=== PATIENT | male | born 1960 | race Caucasian/White ===

== ENCOUNTER 2022-11-24 10:15 | Outpatient (RCR) | payer BC, SELFPAY ==
--- NOTE | 2022-09-23 15:59 | PT.OIE ---
Current Diagnoses Pain in right knee (09/23/22) Visit Care Team Role Provider Type Doctor MD Bon Primary Care Provider Non-Staff Referring Provider Specialty: Medical Address: Phone: Fax: Email: Ele Jones MD Attending Provider Non-Staff Specialty: Urology Address: [address] [place] [address], [id number] Email: Physical Therapy Initial Evaluation PT-OP-A Visit Information Start: 09/23/22 15:19 Freq: Status: Active Protocol: Document 09/23/22 09:45 DCW (Rec: 09/23/22 15:42 DCW [id number]) Out-Patient Physical Therapy Visit Information Visit Information Visit Type Initial Evaluation Visit Start Time 09:45 Visit Stop Time 10:30 Total Visit Minutes 45 Visit Number 1 Number of BANQUET DIRECTOR Visits 0 Evaluation Information Evaluation Date 09/23/22 PT-OP-B Current Condition Start: 09/23/22 15:19 Freq: Status: Active Protocol: Document 09/23/22 09:45 DCW (Rec: 09/23/22 15:42 DCW [id number]) Current Condition History of Current Condition Onset Date Four month history Current Complaints Right knee pain following slip /twisting on ice History of Current Condition Pt is a 62 year old male presenting with a four month history of right knee pain. Pt report he slipped on ice in May, and fell into a temporary fence, resulting in a twisting motion of his right knee. Pt reports he initially didn't feel anything, and then within 24 hours, he had relatively minor pain and swelling. Admits that he didn' t think much of it, until he actually tried to do anything with it, and then any activity he performed felt like it was getting reinjured. Admits to good days and bad days, with no real understanding of what causes which. Notes it has been bothering him enough that he went to get seen by urgent care, and was told he had possible meniscus involvement, and may want a referral to an Ortho. Pt does not feel that even with an MRI showing a meniscus tear that he would opt for surgery, so he would like to try to improve with PT. Pain when he has his large dog pulls or twists with his knee, ascending/descending stairs, or moving his leg while driving. Has tried riding his stationary bike, which seems to help some. Treatment Goals Patient/Caregiver Goals Improve mobility and pain during activities PT-OP-C Subjective Start: 09/23/22 15:19 Freq: Status: Active Protocol: Document 09/23/22 09:45 DCW (Rec: 09/23/22 15:42 DCW [id number]) OP-PT Subjective Patient Comments Patient Comments It has popped once or twice getting up from the chair, but there wasn't really any pain with it. OP-PT Pain Assessment Location Medial Knee Intensity 6 Scale Used Numeric (0 - 10) Frequency Intermittent PT-OP-F Manual Assessment Start: 09/23/22 15:19 Freq: Status: Active Protocol: Document 09/23/22 09:45 DCW (Rec: 09/23/22 15:42 DCW [id number]) Manual Assessments Joint Mobility Assessment Joint Mobility Assessment Point-specific pain right on joint-line slightly anterior to MCL PT-OP-G Mobility & Gait Start: 09/23/22 15:19 Freq: Status: Active Protocol: Document 09/23/22 09:45 DCW (Rec: 09/23/22 15:42 DCW [id number]) OP Gait Assessment Comments Gait Comments During gait, pt performs a slight external rotation during R swing phase, which creates a slight gapping at his medial joint line. PT-OP-L Special Tests Start: 09/23/22 15:19 Freq: Status: Active Protocol: Document 09/23/22 09:45 DCW (Rec: 09/23/22 15:42 DCW [id number]) Special Tests Knee Special Tests Varus- 25 Degrees Test Results Negative Valgus- 25 Degrees Test Results Negative Posterior Draw Test Results Negative Patellar Grind Test Test Results Negative Patella Tap Test Results Negative Nargis Test Test Results Positive Right Apprehension Test Test Results Positive Right Apley's Compression Test Results Positive Right Anterior Draw Test Results Negative PT-OP-M Strength Start: 09/23/22 15:19 Freq: Status: Active Protocol: Document 09/23/22 09:45 DCW (Rec: 09/23/22 15:42 DCW [id number]) Knee Strength Knee Manual Muscle Testing Right Flexion (S2) 5 Normal Extension (L3) 4 Good Comments Pain with resisted right extension Left Flexion (S2) 5 Normal Extension (L3) 5 Normal PT-OP-Q Treatments Start: 09/23/22 15:19 Freq: Status: Active Protocol: Document 09/23/22 09:45 DCW (Rec: 09/23/22 15:58 DCW [id number]) Therapeutic Exercises Standing Exercises Mini-squats Standing Exercise Name Mini-squats Comments pain-free ROM Step lunge Standing Exercise Name Step lunge Side right Equipment Used 12 step Step-up Standing Exercise Name Step-ups Side right Equipment Used 6 step PT-OP-T Assessment and Plan Start: 09/23/22 15:19 Freq: Status: Active Protocol: Document 09/23/22 09:45 DCW (Rec: 09/23/22 15:57 DCW [id number]) Physical Therapy Assessment Rehab Potential Rehabilitation Potential Good Evaluation Complexity Number of Personal Factors/Comorbidities 0 Number of Body Systems Impaired 1-2 Clinical Presentation at Evaluation Stable Impairments Impairments Functional Activities, Functional Mobility,Pain,Soft Tissue Mobility,Strength,Tone Goals Two Impairment Pt has pain when ascending/ descending stairs Human Resources Generalist Goal (LTG) Pt to ascend/descend 12 steps, [id number], without pain, in order to improve ability to perform daily activities. LTG Duration 12/22/22 One Impairment Pt does not have an appropriate home exercise program Short Term Goal (STG) Pt to be independent and compliant with an appropriate HEP STG Duration 10/24/22 Assessment Summary Assessment Pt presents with signs and symptoms consistent with potential knee derangement, potentially with meniscal involvement. Pt's pain is very point-specific at his joint line slightly anterior to the MCL, and not very deep into the joint. Strongly positive appley compression and Nargis tests, which are indicative of meniscal involvement. Additionally, felt relief with distraction through knee joint. Pt also has a slightly dysfunctional gait pattern, turning out his right foot during swing phase, seemingly to create a gapping motion in his right knee. Pt should benefit from skilled therapy focusing on knee strengthening and stability, joint mobilization, and gait training. If pt does not progress as expected, may be beneficial to get referral for ortho. Physical Therapy Plan Frequency and Duration Frequency of Treatment 2x/Week Plan of Care Start Date 09/23/22 Plan of Care End Date 12/22/22 Therapeutic Interventions Therapeutic Interventions Home Exercise Program,Joint Mobilizations,Manual Therapy, Patient/Caregiver Education, Self-Care/Home Management,Soft Tissue Mobilization, Therapeutic Activities, Therapeutic Exercises Next Visit Focus/Plan Next Note Type Treatment Note Next Visit Plan Joint mobs, STM, strengthening , knee stabilization
--- NOTE | 2022-09-23 16:00 | PT.OPPOC ---
Physical, Occupational & Speech Therapy At [facility] Current Diagnoses Pain in right knee (09/23/22) Visit Care Team Role Provider Type Doctor MD Bon Primary Care Provider Non-Staff Referring Provider Specialty: Medical Address: Phone: Fax: Email: Ele Jones MD Attending Provider Non-Staff Specialty: Urology Address: [address] [place] [address], [facility] Email: Plan Of Care PT-OP-T Assessment and Plan Start: 09/23/22 15:19 Freq: Status: Active Protocol: Document 09/23/22 09:45 DCW (Rec: 09/23/22 15:57 DCW [id number]) Physical Therapy Assessment Rehab Potential Rehabilitation Potential Good Evaluation Complexity Number of Personal Factors/Comorbidities 0 Number of Body Systems Impaired 1-2 Clinical Presentation at Evaluation Stable Impairments Impairments Functional Activities, Functional Mobility,Pain,Soft Tissue Mobility,Strength,Tone Goals Two Impairment Pt has pain when ascending/ descending stairs Casing Material Weigher Goal (LTG) Pt to ascend/descend 12 steps, [id number], without pain, in order to improve ability to perform daily activities. LTG Duration 12/22/22 One Impairment Pt does not have an appropriate home exercise program Short Term Goal (STG) Pt to be independent and compliant with an appropriate HEP STG Duration 10/24/22 Assessment Summary Assessment Pt presents with signs and symptoms consistent with potential knee derangement, potentially with meniscal involvement. Pt's pain is very point-specific at his joint line slightly anterior to the MCL, and not very deep into the joint. Strongly positive appley compression and Nargis tests, which are indicative of meniscal involvement. Additionally, felt relief with distraction through knee joint. Pt also has a slightly dysfunctional gait pattern, turning out his right foot during swing phase, seemingly to create a gapping motion in his right knee. Pt should benefit from skilled therapy focusing on knee strengthening and stability, joint mobilization, and gait training. If pt does not progress as expected, may be beneficial to get referral for ortho. Physical Therapy Plan Frequency and Duration Frequency of Treatment 2x/Week Plan of Care Start Date 09/23/22 Plan of Care End Date 12/22/22 Therapeutic Interventions Therapeutic Interventions Home Exercise Program,Joint Mobilizations,Manual Therapy, Patient/Caregiver Education, Self-Care/Home Management,Soft Tissue Mobilization, Therapeutic Activities, Therapeutic Exercises Next Visit Focus/Plan Next Note Type Treatment Note Next Visit Plan Joint mobs, STM, strengthening , knee stabilization Plan of Care Dates Plan of Care Start Date 09/23/22 Plan of Care End Date 12/22/22 Electronically Signed by: Hollis Galloway, PT 09/23/22 1600 If you are in agreement with this Plan of Care, please return a signed and dated copy. I have reviewed this Plan of Care and certify that the skilled therapy services above are required to meet the patient?s needs. Physician Signature Date Printed Name and Credentials Clinical Instructor Signature Printed Name and Credentials
--- NOTE | 2022-10-06 08:25 | PT.OTN ---
Current Diagnoses Pain in right knee (10/06/22) Physical Therapy Treatment Note PT-OP-A Visit Information Start: 09/23/22 15:19 Freq: Status: Active Protocol: Document 10/06/22 07:31 SP (Rec: 10/06/22 08:25 SP [id number]) Out-Patient Physical Therapy Visit Information Visit Information Visit Type Treatment Note Visit Start Time 07:31 Visit Stop Time 08:25 Total Visit Minutes 54 Visit Number 2 Number of NAIL FEEDER Visits 1 Evaluation Information Evaluation Date 09/23/22 PT-OP-B Current Condition Start: 09/23/22 15:19 Freq: Status: Active Protocol: Document 09/23/22 09:45 DCW (Rec: 09/23/22 15:42 DCW [id number]) Current Condition History of Current Condition Onset Date Four month history Current Complaints Right knee pain following slip /twisting on ice History of Current Condition Pt is a 62 year old male presenting with a four month history of right knee pain. Pt report he slipped on ice in May, and fell into a temporary fence, resulting in a twisting motion of his right knee. Pt reports he initially didn't feel anything, and then within 24 hours, he had relatively minor pain and swelling. Admits that he didn' t think much of it, until he actually tried to do anything with it, and then any activity he performed felt like it was getting reinjured. Admits to good days and bad days, with no real understanding of what causes which. Notes it has been bothering him enough that he went to get seen by urgent care, and was told he had possible meniscus involvement, and may want a referral to an Ortho. Pt does not feel that even with an MRI showing a meniscus tear that he would opt for surgery, so he would like to try to improve with PT. Pain when he has his large dog pulls or twists with his knee, ascending/descending stairs, or moving his leg while driving. Has tried riding his stationary bike, which seems to help some. Treatment Goals Patient/Caregiver Goals Improve mobility and pain during activities PT-OP-C Subjective Start: 09/23/22 15:19 Freq: Status: Active Protocol: Document 10/06/22 07:31 SP (Rec: 10/06/22 08:25 SP [id number]) OP-PT Subjective Patient Comments Patient Comments Pt reports feeling more confident with exercises given , wants to be sure doing proper form. Trying to incorporated more active movement into day, sits a computer alot for work. PT-OP-F Manual Assessment Start: 09/23/22 15:19 Freq: Status: Active Protocol: Document 09/23/22 09:45 DCW (Rec: 09/23/22 15:42 DCW [id number]) Manual Assessments Joint Mobility Assessment Joint Mobility Assessment Point-specific pain right on joint-line slightly anterior to MCL PT-OP-G Mobility & Gait Start: 09/23/22 15:19 Freq: Status: Active Protocol: Document 09/23/22 09:45 DCW (Rec: 09/23/22 15:42 DCW [id number]) OP Gait Assessment Comments Gait Comments During gait, pt performs a slight external rotation during R swing phase, which creates a slight gapping at his medial joint line. PT-OP-L Special Tests Start: 09/23/22 15:19 Freq: Status: Active Protocol: Document 09/23/22 09:45 DCW (Rec: 09/23/22 15:42 DCW [id number]) Special Tests Knee Special Tests Varus- 25 Degrees Test Results Negative Valgus- 25 Degrees Test Results Negative Posterior Draw Test Results Negative Patellar Grind Test Test Results Negative Patella Tap Test Results Negative Nargis Test Test Results Positive Right Apprehension Test Test Results Positive Right Apley's Compression Test Results Positive Right Anterior Draw Test Results Negative PT-OP-M Strength Start: 09/23/22 15:19 Freq: Status: Active Protocol: Document 09/23/22 09:45 DCW (Rec: 09/23/22 15:42 DCW [id number]) Knee Strength Knee Manual Muscle Testing Right Flexion (S2) 5 Normal Extension (L3) 4 Good Comments Pain with resisted right extension Left Flexion (S2) 5 Normal Extension (L3) 5 Normal PT-OP-Q Treatments Start: 09/23/22 15:19 Freq: Status: Active Protocol: Document 10/06/22 07:31 SP (Rec: 10/06/22 08:25 SP [id number]) Therapeutic Exercises Sitting Exercises piriformis stretch Sitting Exercise Name added to HEP (seated and standing) Side right Reps/Minutes 30 x2 Comments good feedback response Standing Exercises band walk Standing Exercise Name added to help Resistance TB #1 Reps/Minutes 15 ft x3 laps Comments cued alignment stretching Standing Exercise Name quad, HS (hip hinge), hip flexor (lunge), calf Side bilateral Reps/Minutes 30 each Comments cued for posturing and form Mini-squats Standing Exercise Name Mini-squats Resistance pain-free ROM Equipment Used chair target behind helpful tool Reps/Minutes x10 Comments cued knees with/behind knees, mirror for self corrections form Step lunge Standing Exercise Name Step lunge Side right Equipment Used 12 step, stated doing at home Reps/Minutes 2x10 Comments cued knees with and behind toes, chair target behind helpful tool Step-up Standing Exercise Name Step-ups Side right Equipment Used 6 step Reps/Minutes 2x10 Comments cued Other Exercises self STMs Other Exercise Name quad, HS, calf rolling pin; ball wall glut Equipment Used rolling pin Comments good feedback response Self-Care/Home Management Treatment Education Other Education Time spent introduction to self care stretching, massage if needed for increase flexibility and mobililty. PT-OP-T Assessment and Plan Start: 09/23/22 15:19 Freq: Status: Active Protocol: Document 10/06/22 07:31 SP (Rec: 10/06/22 08:25 SP [id number]) Physical Therapy Assessment Goals Two Impairment Pt has pain when ascending/ descending stairs Jail Goal (LTG) Pt to ascend/descend 12 steps, [id number], without pain, in order to improve ability to perform daily activities. LTG Duration 12/22/22 One Impairment Pt does not have an appropriate home exercise program Short Term Goal (STG) Pt to be independent and compliant with an appropriate HEP STG Duration 10/24/22 Assessment Summary Assessment Pt good feedback response to stretching and self massage application to allow flexibility and incorporation with amount sitting with work. Cues for knee and trunk alignment during HEP, improved decrease tension over anterior R knee with minisquat and lunges, demonstrated improved self corrections. Good feedback response to stretching and self massage for selfcare needed. Physical Therapy Plan Frequency and Duration Frequency of Treatment 2x/Week Plan of Care Start Date 09/23/22 Plan of Care End Date 12/22/22 Therapeutic Interventions Therapeutic Interventions Home Exercise Program,Joint Mobilizations,Manual Therapy, Patient/Caregiver Education, Self-Care/Home Management,Soft Tissue Mobilization, Therapeutic Activities, Therapeutic Exercises Next Visit Focus/Plan Next Note Type Treatment Note Next Visit Plan Recheck HEP: Joint mobs, STM, strengthening , knee stabilization
--- NOTE | 2022-10-21 15:15 | PT.OTN ---
Current Diagnoses Pain in right knee (10/21/22) Physical Therapy Treatment Note PT-OP-A Visit Information Start: 09/23/22 15:19 Freq: Status: Active Protocol: Document 10/21/22 14:34 SP (Rec: 10/21/22 15:32 SP [id number]) Out-Patient Physical Therapy Visit Information Visit Information Visit Type Treatment Note Visit Start Time 14:34 Visit Stop Time 15:15 Total Visit Minutes 41 Visit Number 3 Number of TAR ROOFER Visits 2 Evaluation Information Evaluation Date 09/23/22 PT-OP-B Current Condition Start: 09/23/22 15:19 Freq: Status: Active Protocol: Document 09/23/22 09:45 DCW (Rec: 09/23/22 15:42 DCW [id number]) Current Condition History of Current Condition Onset Date Four month history Current Complaints Right knee pain following slip /twisting on ice History of Current Condition Pt is a 62 year old male presenting with a four month history of right knee pain. Pt report he slipped on ice in May, and fell into a temporary fence, resulting in a twisting motion of his right knee. Pt reports he initially didn't feel anything, and then within 24 hours, he had relatively minor pain and swelling. Admits that he didn' t think much of it, until he actually tried to do anything with it, and then any activity he performed felt like it was getting reinjured. Admits to good days and bad days, with no real understanding of what causes which. Notes it has been bothering him enough that he went to get seen by urgent care, and was told he had possible meniscus involvement, and may want a referral to an Ortho. Pt does not feel that even with an MRI showing a meniscus tear that he would opt for surgery, so he would like to try to improve with PT. Pain when he has his large dog pulls or twists with his knee, ascending/descending stairs, or moving his leg while driving. Has tried riding his stationary bike, which seems to help some. Treatment Goals Patient/Caregiver Goals Improve mobility and pain during activities PT-OP-C Subjective Start: 09/23/22 15:19 Freq: Status: Active Protocol: Document 10/21/22 14:34 SP (Rec: 10/21/22 15:32 SP [id number]) OP-PT Subjective Patient Comments Patient Comments Pt reported felt good after last tx good work out no pain. Compliant with HEP, forgot to perform quad stretch. He reports overall feels better than 2 weeks ago, some days little tender than other but not sure why/if anyting doing cause it. PT-OP-F Manual Assessment Start: 09/23/22 15:19 Freq: Status: Active Protocol: Document 09/23/22 09:45 DCW (Rec: 09/23/22 15:42 DCW [id number]) Manual Assessments Joint Mobility Assessment Joint Mobility Assessment Point-specific pain right on joint-line slightly anterior to MCL PT-OP-G Mobility & Gait Start: 09/23/22 15:19 Freq: Status: Active Protocol: Document 09/23/22 09:45 DCW (Rec: 09/23/22 15:42 DCW [id number]) OP Gait Assessment Comments Gait Comments During gait, pt performs a slight external rotation during R swing phase, which creates a slight gapping at his medial joint line. PT-OP-L Special Tests Start: 09/23/22 15:19 Freq: Status: Active Protocol: Document 09/23/22 09:45 DCW (Rec: 09/23/22 15:42 DCW [id number]) Special Tests Knee Special Tests Varus- 25 Degrees Test Results Negative Valgus- 25 Degrees Test Results Negative Posterior Draw Test Results Negative Patellar Grind Test Test Results Negative Patella Tap Test Results Negative Nargis Test Test Results Positive Right Apprehension Test Test Results Positive Right Apley's Compression Test Results Positive Right Anterior Draw Test Results Negative PT-OP-M Strength Start: 09/23/22 15:19 Freq: Status: Active Protocol: Document 09/23/22 09:45 DCW (Rec: 09/23/22 15:42 DCW [id number]) Knee Strength Knee Manual Muscle Testing Right Flexion (S2) 5 Normal Extension (L3) 4 Good Comments Pain with resisted right extension Left Flexion (S2) 5 Normal Extension (L3) 5 Normal PT-OP-Q Treatments Start: 09/23/22 15:19 Freq: Status: Active Protocol: Document 10/21/22 14:34 SP (Rec: 10/21/22 15:32 SP [id number]) Therapeutic Exercises Sitting Exercises piriformis stretch Sitting Exercise Name review as needed HEP (sit back standing) Side right Reps/Minutes 30 x2 Comments good feedback response Standing Exercises band walk Standing Exercise Name reviewed help Resistance TB #1 Reps/Minutes 15 ft x3 laps Comments cued alignment stretching Standing Exercise Name quad, HS (hip hinge), hip flexor (lunge), calf Side bilateral Resistance HEP reviewed Reps/Minutes 30 each Comments cued for posturing and form and contact something isolate stretch Mini-squats Standing Exercise Name Mini-squats and eccentric squats Resistance pain-free ROM Equipment Used pulldown bench target behind found helpful Reps/Minutes x10 mini, 5 reps eccentric taps Comments cued knees with/behind knees Step lunge Standing Exercise Name Step lunge- stationary Side right Equipment Used floor- painfree within good range Reps/Minutes 2x10 Comments good form, range, stability and painfree muscle work Step-up Standing Exercise Name Concentric repeated step up, eccentric retro and lateral step downs Side right Equipment Used 8 step, near rail Reps/Minutes 2x10 Comments occasional cue for knee alignment with mid foot Neuro Re-Education Treatment Balance Activities hurdles Details uneven (assimulate [place] w/dog) Equipment 2 pods, 4 hurdles, 5 foam ovals Reps/Duration 3 laps Comments cued center/tall posturing, COG over stance LE, level full foot for stability BOSU Details repeated step up R LE Surface BOSU Equipment light contact as needed Reps/Duration x10 Comments cued flat foot wt shift over stance LE. PT-OP-T Assessment and Plan Start: 09/23/22 15:19 Freq: Status: Active Protocol: Document 10/21/22 14:34 SP (Rec: 10/21/22 15:32 SP [id number]) Physical Therapy Assessment Goals Two Impairment Pt has pain when ascending/ descending stairs Inside Steward/Stewardess Goal (LTG) Pt to ascend/descend 12 steps, [id number], without pain, in order to improve ability to perform daily activities. LTG Duration 12/22/22 One Impairment Pt does not have an appropriate home exercise program Short Term Goal (STG) Pt to be independent and compliant with an appropriate HEP 10/21/22: step ups, band walk f /b/l, mini squat, stretching in standing, st lunge. STG Duration 10/24/22 Assessment Summary Assessment Pt improve self corrections during R knee alignment squats , step ups, no pain reported. Good understanding performance flexibility during day for mobility in knee. Physical Therapy Plan Frequency and Duration Frequency of Treatment 2x/Week Plan of Care Start Date 09/23/22 Plan of Care End Date 12/22/22 Therapeutic Interventions Therapeutic Interventions Home Exercise Program,Joint Mobilizations,Manual Therapy, Patient/Caregiver Education, Self-Care/Home Management,Soft Tissue Mobilization, Therapeutic Activities, Therapeutic Exercises Next Visit Focus/Plan Next Note Type Treatment Note Next Visit Plan Recheck HEP: see goal. POC: Joint mobs, STM, strengthening, knee stabilization
--- NOTE | 2022-10-27 15:31 | PT.OTN ---
Current Diagnoses Pain in right knee (10/27/22) Physical Therapy Treatment Note PT-OP-A Visit Information Start: 09/23/22 15:19 Freq: Status: Active Protocol: Document 10/27/22 14:45 DCW (Rec: 10/27/22 15:31 DCW [id number]) Out-Patient Physical Therapy Visit Information Visit Information Visit Type Treatment Note Visit Start Time 14:45 Visit Stop Time 15:30 Total Visit Minutes 45 Visit Number 4 Number of RESCUE INSTRUCTOR Visits 0 Evaluation Information Evaluation Date 09/23/22 PT-OP-B Current Condition Start: 09/23/22 15:19 Freq: Status: Active Protocol: Document 09/23/22 09:45 DCW (Rec: 09/23/22 15:42 DCW [id number]) Current Condition History of Current Condition Onset Date Four month history Current Complaints Right knee pain following slip /twisting on ice History of Current Condition Pt is a 62 year old male presenting with a four month history of right knee pain. Pt report he slipped on ice in May, and fell into a temporary fence, resulting in a twisting motion of his right knee. Pt reports he initially didn't feel anything, and then within 24 hours, he had relatively minor pain and swelling. Admits that he didn' t think much of it, until he actually tried to do anything with it, and then any activity he performed felt like it was getting reinjured. Admits to good days and bad days, with no real understanding of what causes which. Notes it has been bothering him enough that he went to get seen by urgent care, and was told he had possible meniscus involvement, and may want a referral to an Ortho. Pt does not feel that even with an MRI showing a meniscus tear that he would opt for surgery, so he would like to try to improve with PT. Pain when he has his large dog pulls or twists with his knee, ascending/descending stairs, or moving his leg while driving. Has tried riding his stationary bike, which seems to help some. Treatment Goals Patient/Caregiver Goals Improve mobility and pain during activities PT-OP-C Subjective Start: 09/23/22 15:19 Freq: Status: Active Protocol: Document 10/27/22 14:45 DCW (Rec: 10/27/22 15:31 DCW [id number]) OP-PT Subjective Patient Comments Patient Comments It's improved a lot since my first visit. Notes pain has largely gone away, but it's still not 100%, maybe 90%. PT-OP-F Manual Assessment Start: 09/23/22 15:19 Freq: Status: Active Protocol: Document 09/23/22 09:45 DCW (Rec: 09/23/22 15:42 DCW [id number]) Manual Assessments Joint Mobility Assessment Joint Mobility Assessment Point-specific pain right on joint-line slightly anterior to MCL PT-OP-G Mobility & Gait Start: 09/23/22 15:19 Freq: Status: Active Protocol: Document 09/23/22 09:45 DCW (Rec: 09/23/22 15:42 DCW [id number]) OP Gait Assessment Comments Gait Comments During gait, pt performs a slight external rotation during R swing phase, which creates a slight gapping at his medial joint line. PT-OP-L Special Tests Start: 09/23/22 15:19 Freq: Status: Active Protocol: Document 09/23/22 09:45 DCW (Rec: 09/23/22 15:42 DCW [id number]) Special Tests Knee Special Tests Varus- 25 Degrees Test Results Negative Valgus- 25 Degrees Test Results Negative Posterior Draw Test Results Negative Patellar Grind Test Test Results Negative Patella Tap Test Results Negative Nargis Test Test Results Positive Right Apprehension Test Test Results Positive Right Apley's Compression Test Results Positive Right Anterior Draw Test Results Negative PT-OP-M Strength Start: 09/23/22 15:19 Freq: Status: Active Protocol: Document 09/23/22 09:45 DCW (Rec: 09/23/22 15:42 DCW [id number]) Knee Strength Knee Manual Muscle Testing Right Flexion (S2) 5 Normal Extension (L3) 4 Good Comments Pain with resisted right extension Left Flexion (S2) 5 Normal Extension (L3) 5 Normal PT-OP-Q Treatments Start: 09/23/22 15:19 Freq: Status: Active Protocol: Document 10/27/22 14:45 DCW (Rec: 10/27/22 15:31 DCW [id number]) Gym Equipment Shuttle Balance Red Details Staggered, Lateral weight shift Therapeutic Exercises Standing Exercises Hip Extension Standing Exercise Name Hip Extension Side bilateral Resistance Green loop TKE Standing Exercise Name TKE Side right Resistance Dark Green band walk Standing Exercise Name reviewed help Resistance Green loop Reps/Minutes 15 ft x3 laps Comments cued eccentric control Step lunge Standing Exercise Name Step lunge onto BOSU Side bilateral Step-up Standing Exercise Name Step-ups/downs Side right Resistance 6 step Neuro Re-Education Treatment Balance Activities BOSU Details SLS on BOSU Surface Blue BOSU Equipment occasional UE stabilization on rail PT-OP-T Assessment and Plan Start: 09/23/22 15:19 Freq: Status: Active Protocol: Document 10/27/22 14:45 DCW (Rec: 10/27/22 15:31 DCW [id number]) Physical Therapy Assessment Goals Two Impairment Pt has pain when ascending/ descending stairs Transcription Goal (LTG) Pt to ascend/descend 12 steps, [id number], without pain, in order to improve ability to perform daily activities. LTG Duration 12/22/22 One Impairment Pt does not have an appropriate home exercise program Short Term Goal (STG) Pt to be independent and compliant with an appropriate HEP 10/21/22: step ups, band walk f /b/l, mini squat, stretching in standing, st lunge. STG Duration 10/24/22 Assessment Summary Assessment Pt showing great progress since initial evaluation, compliant with HEP, experiencing minimal knee pain with any activities. Will still get some mild soreness with certain motions, would like some continued assistance with HEP direction, but unlikely to benefit from skilled therapy past current scheduled visits. Physical Therapy Plan Frequency and Duration Frequency of Treatment 2x/Week Plan of Care Start Date 09/23/22 Plan of Care End Date 12/22/22 Therapeutic Interventions Therapeutic Interventions Home Exercise Program,Joint Mobilizations,Manual Therapy, Patient/Caregiver Education, Self-Care/Home Management,Soft Tissue Mobilization, Therapeutic Activities, Therapeutic Exercises Next Visit Focus/Plan Next Note Type Treatment Note Next Visit Plan Recheck HEP: see goal. POC: Joint mobs, STM, strengthening, knee stabilization
--- NOTE | 2022-11-03 09:06 | PT.OTN ---
Current Diagnoses Pain in right knee (11/03/22) Physical Therapy Treatment Note PT-OP-A Visit Information Start: 09/23/22 15:19 Freq: Status: Active Protocol: Document 11/03/22 08:16 SP (Rec: 11/03/22 09:06 SP [id number]) Out-Patient Physical Therapy Visit Information Visit Information Visit Type Treatment Note Visit Start Time 08:16 Visit Stop Time 09:06 Total Visit Minutes 50 Visit Number 5 Number of ABATTOIR SUPERVISOR Visits 1 Evaluation Information Evaluation Date 09/23/22 PT-OP-B Current Condition Start: 09/23/22 15:19 Freq: Status: Active Protocol: Document 09/23/22 09:45 DCW (Rec: 09/23/22 15:42 DCW [id number]) Current Condition History of Current Condition Onset Date Four month history Current Complaints Right knee pain following slip /twisting on ice History of Current Condition Pt is a 62 year old male presenting with a four month history of right knee pain. Pt report he slipped on ice in May, and fell into a temporary fence, resulting in a twisting motion of his right knee. Pt reports he initially didn't feel anything, and then within 24 hours, he had relatively minor pain and swelling. Admits that he didn' t think much of it, until he actually tried to do anything with it, and then any activity he performed felt like it was getting reinjured. Admits to good days and bad days, with no real understanding of what causes which. Notes it has been bothering him enough that he went to get seen by urgent care, and was told he had possible meniscus involvement, and may want a referral to an Ortho. Pt does not feel that even with an MRI showing a meniscus tear that he would opt for surgery, so he would like to try to improve with PT. Pain when he has his large dog pulls or twists with his knee, ascending/descending stairs, or moving his leg while driving. Has tried riding his stationary bike, which seems to help some. Treatment Goals Patient/Caregiver Goals Improve mobility and pain during activities PT-OP-C Subjective Start: 09/23/22 15:19 Freq: Status: Active Protocol: Document 11/03/22 08:16 SP (Rec: 11/03/22 09:06 SP [id number]) OP-PT Subjective Patient Comments Patient Comments Pt reports continues to see improvement in knee pain and believes his exercises are helping him improve mobility. He had to quick jog across a parkinglot and had no knee pain but didn't feel strong, little unsteady on R knee. PT-OP-F Manual Assessment Start: 09/23/22 15:19 Freq: Status: Active Protocol: Document 09/23/22 09:45 DCW (Rec: 09/23/22 15:42 DCW [id number]) Manual Assessments Joint Mobility Assessment Joint Mobility Assessment Point-specific pain right on joint-line slightly anterior to MCL PT-OP-G Mobility & Gait Start: 09/23/22 15:19 Freq: Status: Active Protocol: Document 09/23/22 09:45 DCW (Rec: 09/23/22 15:42 DCW [id number]) OP Gait Assessment Comments Gait Comments During gait, pt performs a slight external rotation during R swing phase, which creates a slight gapping at his medial joint line. PT-OP-L Special Tests Start: 09/23/22 15:19 Freq: Status: Active Protocol: Document 09/23/22 09:45 DCW (Rec: 09/23/22 15:42 DCW [id number]) Special Tests Knee Special Tests Varus- 25 Degrees Test Results Negative Valgus- 25 Degrees Test Results Negative Posterior Draw Test Results Negative Patellar Grind Test Test Results Negative Patella Tap Test Results Negative Nargis Test Test Results Positive Right Apprehension Test Test Results Positive Right Apley's Compression Test Results Positive Right Anterior Draw Test Results Negative PT-OP-M Strength Start: 09/23/22 15:19 Freq: Status: Active Protocol: Document 09/23/22 09:45 DCW (Rec: 09/23/22 15:42 DCW [id number]) Knee Strength Knee Manual Muscle Testing Right Flexion (S2) 5 Normal Extension (L3) 4 Good Comments Pain with resisted right extension Left Flexion (S2) 5 Normal Extension (L3) 5 Normal PT-OP-Q Treatments Start: 09/23/22 15:19 Freq: Status: Active Protocol: Document 11/03/22 08:16 SP (Rec: 11/03/22 09:06 SP [id number]) Cardio Equipment Bicycle (Upright) Duration (Minutes) 5 Resistance 12 Seat Position 8 Other 71RPMs, 1.96 miles Gym Equipment Shuttle Recovery unilateral squat Details cued heel press glut/quad/HS emphasis, no anterior knee- good response Resistance 50# (2 new bands) Shuttle Recovery Platform Stable Reps/Time x20 dynamic hops Details cued eccentric return Resistance 37# Shuttle Recovery Platform Stable Reps/Time x10 bilateral squat Resistance 100# (1 new band) Shuttle Recovery Platform Stable Reps/Time x20 Therapeutic Exercises Standing Exercises walking lunges Reps/Minutes 15 ft x3 laps Comments good form painfree Step lunge Standing Exercise Name Step lunge onto BOSU Side bilateral Reps/Minutes x20 Comments good self corrections knee alignment Step-up Standing Exercise Name Step-ups/downs Side right Resistance 6 step Gait Training Gait Activity stairs Description MET GOAL #2 Comments ascend/descend 28 MAP bld stairs receiprocal stepping painfree and states doing well at home painfree. Neuro Re-Education Treatment Balance Activities SLS clock taps Details RLE stance leg, LLE reach 9, 7 -8, 6 o'clock Comments cued knee with and behind toes dynamic drills Reps/Duration 2 laps each 20 ft Comments 1. f, b, lateral- quick stepping 2. side shuffle lateral, diagonal btwn cones change direction (basketball) 3. carioca 4. walking lunges- alternating each LE PT-OP-T Assessment and Plan Start: 09/23/22 15:19 Freq: Status: Active Protocol: Document 11/03/22 08:16 SP (Rec: 11/03/22 09:06 SP [id number]) Physical Therapy Assessment Goals Two Impairment Pt has pain when ascending/ descending stairs Director [employer] Goal (LTG) Pt to ascend/descend 12 steps, [id number], without pain, in order to improve ability to perform daily activities. 11/03/22: MET GOAL: ascend/ descend 28 MAP bld stairs receiprocal stepping painfree and states doing well at home painfree. LTG Duration 12/22/22 GOAL MET One Impairment Pt does not have an appropriate home exercise program Short Term Goal (STG) Pt to be independent and compliant with an appropriate HEP 10/21/22: step ups, band walk f /b/l, mini squat, stretching in standing, st lunge. STG Duration 10/24/22 Progress Towards Goals Progress Comments MET LTG #2 : I stairs, painfree. Assessment Summary Assessment Pt responded well to more dynamic and SLS ther ex today. Cues for set up and proper form post demonstration during added star SLS reaches, knee with/behind toes. Once understood patterning was able to progress quicker movement with no adverse affects to lateral mobility. Physical Therapy Plan Frequency and Duration Frequency of Treatment 2x/Week Plan of Care Start Date 09/23/22 Plan of Care End Date 12/22/22 Therapeutic Interventions Therapeutic Interventions Home Exercise Program,Joint Mobilizations,Manual Therapy, Patient/Caregiver Education, Self-Care/Home Management,Soft Tissue Mobilization, Therapeutic Activities, Therapeutic Exercises Next Visit Focus/Plan Next Note Type Treatment Note Next Visit Plan Recheck HEP: see goals. Response to lateral drills and dynamic mobility. POC: Joint mobs, STM, strengthening, knee stabilization
--- NOTE | 2022-11-10 09:00 | PT.OTN ---
Current Diagnoses Pain in right knee (11/10/22) Physical Therapy Treatment Note PT-OP-A Visit Information Start: 09/23/22 15:19 Freq: Status: Active Protocol: Document 11/10/22 08:17 SP (Rec: 11/10/22 09:07 SP [id number]) Out-Patient Physical Therapy Visit Information Visit Information Visit Type Treatment Note Visit Start Time 08:17 Visit Stop Time 09:00 Total Visit Minutes 43 Visit Number 6 Number of HOT ROLL LAMINATOR Visits 2 Evaluation Information Evaluation Date 09/23/22 PT-OP-B Current Condition Start: 09/23/22 15:19 Freq: Status: Active Protocol: Document 09/23/22 09:45 DCW (Rec: 09/23/22 15:42 DCW [id number]) Current Condition History of Current Condition Onset Date Four month history Current Complaints Right knee pain following slip /twisting on ice History of Current Condition Pt is a 62 year old male presenting with a four month history of right knee pain. Pt report he slipped on ice in May, and fell into a temporary fence, resulting in a twisting motion of his right knee. Pt reports he initially didn't feel anything, and then within 24 hours, he had relatively minor pain and swelling. Admits that he didn' t think much of it, until he actually tried to do anything with it, and then any activity he performed felt like it was getting reinjured. Admits to good days and bad days, with no real understanding of what causes which. Notes it has been bothering him enough that he went to get seen by urgent care, and was told he had possible meniscus involvement, and may want a referral to an Ortho. Pt does not feel that even with an MRI showing a meniscus tear that he would opt for surgery, so he would like to try to improve with PT. Pain when he has his large dog pulls or twists with his knee, ascending/descending stairs, or moving his leg while driving. Has tried riding his stationary bike, which seems to help some. Treatment Goals Patient/Caregiver Goals Improve mobility and pain during activities PT-OP-C Subjective Start: 09/23/22 15:19 Freq: Status: Active Protocol: Document 11/10/22 08:17 SP (Rec: 11/10/22 09:07 SP [id number]) OP-PT Subjective Patient Comments Patient Comments Pt reports felt ok maybe little sore but not pain. He did more yard work than HEP routine since last tx and reports feels knee not 100% but finds doesn't limit him. Was doing motions like exercises are: squatting, lunge motions). PT-OP-F Manual Assessment Start: 09/23/22 15:19 Freq: Status: Active Protocol: Document 09/23/22 09:45 DCW (Rec: 09/23/22 15:42 DCW [id number]) Manual Assessments Joint Mobility Assessment Joint Mobility Assessment Point-specific pain right on joint-line slightly anterior to MCL PT-OP-G Mobility & Gait Start: 09/23/22 15:19 Freq: Status: Active Protocol: Document 09/23/22 09:45 DCW (Rec: 09/23/22 15:42 DCW [id number]) OP Gait Assessment Comments Gait Comments During gait, pt performs a slight external rotation during R swing phase, which creates a slight gapping at his medial joint line. PT-OP-L Special Tests Start: 09/23/22 15:19 Freq: Status: Active Protocol: Document 09/23/22 09:45 DCW (Rec: 09/23/22 15:42 DCW [id number]) Special Tests Knee Special Tests Varus- 25 Degrees Test Results Negative Valgus- 25 Degrees Test Results Negative Posterior Draw Test Results Negative Patellar Grind Test Test Results Negative Patella Tap Test Results Negative Nargis Test Test Results Positive Right Apprehension Test Test Results Positive Right Apley's Compression Test Results Positive Right Anterior Draw Test Results Negative PT-OP-M Strength Start: 09/23/22 15:19 Freq: Status: Active Protocol: Document 09/23/22 09:45 DCW (Rec: 09/23/22 15:42 DCW [id number]) Knee Strength Knee Manual Muscle Testing Right Flexion (S2) 5 Normal Extension (L3) 4 Good Comments Pain with resisted right extension Left Flexion (S2) 5 Normal Extension (L3) 5 Normal PT-OP-Q Treatments Start: 09/23/22 15:19 Freq: Status: Active Protocol: Document 11/10/22 08:17 SP (Rec: 11/10/22 09:07 SP [id number]) Cardio Equipment Bicycle (Upright) Duration (Minutes) 6 Resistance 12>14 Seat Position 8 Other 71RPMs, 2.4miles Gym Equipment Sport Cord red Exercise Details step ups Cord/Resistance 6 step + blue foam, bosu Reps/Duration x10 reps each surface Comments cued flat foot wt shift- good wt shift stability self corrections. Therapeutic Exercises Standing Exercises walking lunges Reps/Minutes 20 ft x3 laps Comments good form painfree Hip Extension Standing Exercise Name Hip Extension Side bilateral Resistance Green loop (#5 plum at home) Reps/Minutes 2x10 alternate BLEs Comments cued trunk/pelvis still/tall posturing TKE Standing Exercise Name TKE Side right Resistance Dark Green> #5 plum Reps/Minutes x20 Comments cued/ed x1 for set up/proper form band walk Standing Exercise Name reviewed help Resistance #5 lateral Reps/Minutes 15 ft x3 laps Comments cued eccentric control Step lunge Standing Exercise Name Step lunge onto BOSU- repeated progressed step ups Side bilateral Equipment Used rail PRN Reps/Minutes x20 Comments good self corrections knee alignment Step-up Standing Exercise Name Step-ups/downs Side right Resistance 6 step +blue foam Reps/Minutes 2x10 Neuro Re-Education Treatment Balance Activities dynamic drills Reps/Duration 3 laps each 10 ft Comments 1. f, b, lateral- quick stepping 2. side shuffle lateral, diagonal btwn cones change direction (basketball) 3. carioca 4. walking lunges- alternating each LE PT-OP-T Assessment and Plan Start: 09/23/22 15:19 Freq: Status: Active Protocol: Document 11/10/22 08:17 SP (Rec: 11/10/22 09:07 SP [id number]) Physical Therapy Assessment Goals Two Impairment Pt has pain when ascending/ descending stairs Roof Truss Machine Tender Goal (LTG) Pt to ascend/descend 12 steps, [id number], without pain, in order to improve ability to perform daily activities. 11/03/22: MET GOAL: ascend/ descend 28 MAP bld stairs receiprocal stepping painfree and states doing well at home painfree. LTG Duration 12/22/22 GOAL MET One Impairment Pt does not have an appropriate home exercise program Short Term Goal (STG) Pt to be independent and compliant with an appropriate HEP 10/21/22: step ups, band walk f /b/l, mini squat, stretching in standing, st lunge. STG Duration 10/24/22 Assessment Summary Assessment Pt good feedback response to uneven ther ex and dynamic activities today withoutpain. 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 Physical Therapy Plan Frequency and Duration Frequency of Treatment 2x/Week Plan of Care Start Date 09/23/22 Plan of Care End Date 12/22/22 Therapeutic Interventions Therapeutic Interventions Home Exercise Program,Joint Mobilizations,Manual Therapy, Patient/Caregiver Education, Self-Care/Home Management,Soft Tissue Mobilization, Therapeutic Activities, Therapeutic Exercises Next Visit Focus/Plan Next Note Type Treatment Note Next Visit Plan Recheck HEP: see goals. Response to lateral drills and dynamic mobility. POC: Joint mobs, STM, strengthening, knee stabilization
--- NOTE | 2022-11-17 09:06 | PT.OTN ---
Current Diagnoses Pain in right knee (11/17/22) Physical Therapy Treatment Note PT-OP-A Visit Information Start: 09/23/22 15:19 Freq: Status: Active Protocol: Document 11/17/22 08:20 SP (Rec: 11/17/22 09:06 SP [id number]) Out-Patient Physical Therapy Visit Information Visit Information Visit Type Treatment Note Visit Start Time 08:20 Visit Stop Time 09:06 Total Visit Minutes 46 Visit Number 7 Number of LIBR[employer]IAN [employer]LECTIONS Visits 3 Evaluation Information Evaluation Date 09/23/22 PT-OP-B Current Condition Start: 09/23/22 15:19 Freq: Status: Active Protocol: Document 09/23/22 09:45 DCW (Rec: 09/23/22 15:42 DCW [id number]) Current Condition History of Current Condition Onset Date Four month history Current Complaints Right knee pain following slip /twisting on ice History of Current Condition Pt is a 62 year old male presenting with a four month history of right knee pain. Pt report he slipped on ice in May, and fell into a temporary fence, resulting in a twisting motion of his right knee. Pt reports he initially didn't feel anything, and then within 24 hours, he had relatively minor pain and swelling. Admits that he didn' t think much of it, until he actually tried to do anything with it, and then any activity he performed felt like it was getting reinjured. Admits to good days and bad days, with no real understanding of what causes which. Notes it has been bothering him enough that he went to get seen by urgent care, and was told he had possible meniscus involvement, and may want a referral to an Ortho. Pt does not feel that even with an MRI showing a meniscus tear that he would opt for surgery, so he would like to try to improve with PT. Pain when he has his large dog pulls or twists with his knee, ascending/descending stairs, or moving his leg while driving. Has tried riding his stationary bike, which seems to help some. 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 PT-OP-F Manual Assessment Start: 09/23/22 15:19 Freq: Status: Active Protocol: Document 09/23/22 09:45 DCW (Rec: 09/23/22 15:42 DCW [id number]) Manual Assessments Joint Mobility Assessment Joint Mobility Assessment Point-specific pain right on joint-line slightly anterior to MCL PT-OP-G Mobility & Gait Start: 09/23/22 15:19 Freq: Status: Active Protocol: Document 09/23/22 09:45 DCW (Rec: 09/23/22 15:42 DCW [id number]) OP Gait Assessment Comments Gait Comments During gait, pt performs a slight external rotation during R swing phase, which creates a slight gapping at his medial joint line. PT-OP-L Special Tests Start: 09/23/22 15:19 Freq: Status: Active Protocol: Document 09/23/22 09:45 DCW (Rec: 09/23/22 15:42 DCW [id number]) Special Tests Knee Special Tests Varus- 25 Degrees Test Results Negative Valgus- 25 Degrees Test Results Negative Posterior Draw Test Results Negative Patellar Grind Test Test Results Negative Patella Tap Test Results Negative Nargis Test Test Results Positive Right Apprehension Test Test Results Positive Right Apley's Compression Test Results Positive Right Anterior Draw Test Results Negative PT-OP-M Strength Start: 09/23/22 15:19 Freq: Status: Active Protocol: Document 09/23/22 09:45 DCW (Rec: 09/23/22 15:42 DCW [id number]) Knee Strength Knee Manual Muscle Testing Right Flexion (S2) 5 Normal Extension (L3) 4 Good Comments Pain with resisted right extension Left Flexion (S2) 5 Normal Extension (L3) 5 Normal PT-OP-Q Treatments Start: 09/23/22 15:19 Freq: Status: Active Protocol: Document 11/17/22 08:20 SP (Rec: 11/17/22 09:06 SP [id number]) Gym Equipment Shuttle Recovery unilateral squat Details good form Resistance 50# (2 new bands) Shuttle Recovery Platform Stable Reps/Time x20 dynamic hops Details cued eccentric return Resistance 37# Shuttle Recovery Platform Stable Reps/Time x10 Therapeutic Exercises Supine Exercises SL bridge Supine Exercise Name added to HEP Side bilateral Resistance alternate, opp LE 90/90 table top Reps/Minutes 2x12 Comments good feedback effort SLR Supine Exercise Name added to HEP 2 o'clock Side left Reps/Minutes 2x12 Comments good feedback response Standing Exercises step down Standing Exercise Name added to HEP Side right Equipment Used 6 step Reps/Minutes x10 Comments painfree walking lunges Reps/Minutes 20 ft x3 laps Comments good form painfree band walk Standing Exercise Name reviewed fwd/bwd/lateral ( squat position) Resistance #5 (plum) Reps/Minutes 15 ft x3 laps Comments good form painfree Step-up Standing Exercise Name Step ups repeated Side right Resistance BOSU, 8 box w/ blue foam Reps/Minutes 2x10 Comments good effort, painfree Other Exercises self STMs Other Exercise Name quad, HS, calf rolling pin Side left Equipment Used rolling pin Comments good feedback response Manual Therapy Treatment Soft Tissue Mobilization L leg Body Location quad, adductor, calf Mobilization Type Strumming Intensity/Depth Moderate Body Position Supine Comments manual and ed use rolling pin PT-OP-T Assessment and Plan Start: 09/23/22 15:19 Freq: Status: Active Protocol: Document 11/17/22 08:20 SP (Rec: 11/17/22 09:06 SP [id number]) Physical Therapy Assessment Goals Two Impairment Pt has pain when ascending/ descending stairs System Manager Goal (LTG) Pt to ascend/descend 12 steps, [id number], without pain, in order to improve ability to perform daily activities. 11/03/22: MET GOAL: ascend/ descend 28 MAP bld stairs receiprocal stepping painfree and states doing well at home painfree. LTG Duration 12/22/22 GOAL MET One Impairment Pt does not have an appropriate home exercise program Short Term Goal (STG) Pt to be independent and compliant with an appropriate HEP 10/21/22: step ups, band walk f /b/l, mini squat, stretching in standing, st lunge. 11/17/22: added Supine VMO SLR, single leg bridge, step downs for strength progression. STG Duration 10/24/22 progression 11/17/22 Assessment Summary Assessment Pt reported just muscle tiring no pain throughout ther ex today. Pt requested end tx wants to start return to jog, [employer] suggested 2 min walk and start 30 sec- 1 min jog then slowly progress increase jog time as tolerate, 0% incline with TM. Next tx assess. Pt stated is going to be busy the next 3 weeks after last scheduled appt and unsure if should continue appts, will discuss with PT next tx. Physical Therapy Plan Frequency and Duration Frequency of Treatment 2x/Week Plan of Care Start Date 09/23/22 Plan of Care End Date 12/22/22 Therapeutic Interventions Therapeutic Interventions Home Exercise Program,Joint Mobilizations,Manual Therapy, Patient/Caregiver Education, Self-Care/Home Management,Soft Tissue Mobilization, Therapeutic Activities, Therapeutic Exercises Next Visit Focus/Plan Next Note Type Treatment Note Next Visit Plan Recheck HEP and tolerated activities in PT thus far. Initiated Return to jog and if continuing PT appts due to unable attend next 3 weeks. POC: Joint mobs, STM, strengthening, knee stabilization
--- NOTE | 2022-11-24 10:56 | PT.OTN ---
Current Diagnoses Pain in right knee (11/24/22) Physical Therapy Treatment Note PT-OP-A Visit Information Start: 09/23/22 15:19 Freq: Status: Active Protocol: Document 11/24/22 10:15 DCW (Rec: 11/24/22 10:56 DCW [id number]) Out-Patient Physical Therapy Visit Information Visit Information Visit Type Treatment Note Visit Start Time 10:15 Visit Stop Time 11:00 Total Visit Minutes 45 Visit Number 8 Number of FLOOR ASSOCIATE Visits 0 Evaluation Information Evaluation Date 09/23/22 PT-OP-B Current Condition Start: 09/23/22 15:19 Freq: Status: Active Protocol: Document 09/23/22 09:45 DCW (Rec: 09/23/22 15:42 DCW [id number]) Current Condition History of Current Condition Onset Date Four month history Current Complaints Right knee pain following slip /twisting on ice History of Current Condition Pt is a 62 year old male presenting with a four month history of right knee pain. Pt report he slipped on ice in May, and fell into a temporary fence, resulting in a twisting motion of his right knee. Pt reports he initially didn't feel anything, and then within 24 hours, he had relatively minor pain and swelling. Admits that he didn' t think much of it, until he actually tried to do anything with it, and then any activity he performed felt like it was getting reinjured. Admits to good days and bad days, with no real understanding of what causes which. Notes it has been bothering him enough that he went to get seen by urgent care, and was told he had possible meniscus involvement, and may want a referral to an Ortho. Pt does not feel that even with an MRI showing a meniscus tear that he would opt for surgery, so he would like to try to improve with PT. Pain when he has his large dog pulls or twists with his knee, ascending/descending stairs, or moving his leg while driving. Has tried riding his stationary bike, which seems to help some. Treatment Goals Patient/Caregiver Goals Improve mobility and pain during activities PT-OP-C Subjective Start: 09/23/22 15:19 Freq: Status: Active Protocol: Document 11/24/22 10:15 DCW (Rec: 11/24/22 10:56 DCW [id number]) OP-PT Subjective Patient Comments Patient Comments I worked it pretty hard this weekend. PT-OP-F Manual Assessment Start: 09/23/22 15:19 Freq: Status: Active Protocol: Document 09/23/22 09:45 DCW (Rec: 09/23/22 15:42 DCW [id number]) Manual Assessments Joint Mobility Assessment Joint Mobility Assessment Point-specific pain right on joint-line slightly anterior to MCL PT-OP-G Mobility & Gait Start: 09/23/22 15:19 Freq: Status: Active Protocol: Document 09/23/22 09:45 DCW (Rec: 09/23/22 15:42 DCW [id number]) OP Gait Assessment Comments Gait Comments During gait, pt performs a slight external rotation during R swing phase, which creates a slight gapping at his medial joint line. PT-OP-L Special Tests Start: 09/23/22 15:19 Freq: Status: Active Protocol: Document 09/23/22 09:45 DCW (Rec: 09/23/22 15:42 DCW [id number]) Special Tests Knee Special Tests Varus- 25 Degrees Test Results Negative Valgus- 25 Degrees Test Results Negative Posterior Draw Test Results Negative Patellar Grind Test Test Results Negative Patella Tap Test Results Negative Nargis Test Test Results Positive Right Apprehension Test Test Results Positive Right Apley's Compression Test Results Positive Right Anterior Draw Test Results Negative PT-OP-M Strength Start: 09/23/22 15:19 Freq: Status: Active Protocol: Document 09/23/22 09:45 DCW (Rec: 09/23/22 15:42 DCW [id number]) Knee Strength Knee Manual Muscle Testing Right Flexion (S2) 5 Normal Extension (L3) 4 Good Comments Pain with resisted right extension Left Flexion (S2) 5 Normal Extension (L3) 5 Normal PT-OP-Q Treatments Start: 09/23/22 15:19 Freq: Status: Active Protocol: Document 11/24/22 10:15 DCW (Rec: 11/24/22 10:56 DCW [id number]) Cardio Equipment Elliptical Duration (Minutes) 6 Resistance 4 Gym Equipment Shuttle Recovery unilateral squat Details good form Resistance 62# (2 new bands) Shuttle Recovery Platform Stable Reps/Time x20 dynamic hops Details cued eccentric return Resistance 50# Shuttle Recovery Platform Stable Reps/Time x10 bilateral squat Resistance 112# (4 new bands) Shuttle Recovery Platform Stable Reps/Time x20 Therapeutic Exercises Standing Exercises band walk Standing Exercise Name fwd/bwd/lateral (squat position) Resistance Blue loop Reps/Minutes 15 ft x3 laps Comments good form painfree Manual Therapy Treatment Soft Tissue Mobilization L leg Body Location quad, adductor, calf Mobilization Type Strumming Intensity/Depth Moderate Body Position Supine Comments manual and ed use rolling pin PT-OP-T Assessment and Plan Start: 09/23/22 15:19 Freq: Status: Active Protocol: Document 11/24/22 10:15 DCW (Rec: 11/24/22 10:56 DCW [id number]) Physical Therapy Assessment Goals Two Impairment Pt has pain when ascending/ descending stairs Custodial Goal (LTG) Pt to ascend/descend 12 steps, [id number], without pain, in order to improve ability to perform daily activities. 11/03/22: MET GOAL: ascend/ descend 28 MAP bld stairs receiprocal stepping painfree and states doing well at home painfree. LTG Duration 12/22/22 GOAL MET One Impairment Pt does not have an appropriate home exercise program Short Term Goal (STG) Pt to be independent and compliant with an appropriate HEP 10/21/22: step ups, band walk f /b/l, mini squat, stretching in standing, st lunge. 11/17/22: added Supine VMO SLR, single leg bridge, step downs for strength progression. STG Duration 10/24/22 progression 11/17/22 Assessment Summary Assessment Pt still having some increased discomfort with higher-level activities, would like to get back to jogging. Will be very busy with out-of-town visitors and then traveling out-of- state, but would like to get back in when he returns to determine if he needs continued skilled therapeutic intervention. Physical Therapy Plan Frequency and Duration Frequency of Treatment 2x/Week Plan of Care Start Date 09/23/22 Plan of Care End Date 12/22/22 Therapeutic Interventions Therapeutic Interventions Home Exercise Program,Joint Mobilizations,Manual Therapy, Patient/Caregiver Education, Self-Care/Home Management,Soft Tissue Mobilization, Therapeutic Activities, Therapeutic Exercises Next Visit Focus/Plan Next Note Type Treatment Note Next Visit Plan Recheck HEP and tolerated activities in PT thus far. Initiated Return to jog and if continuing PT appts due to unable attend next 3 weeks. POC: Joint mobs, STM, strengthening, knee stabilization
--- NOTE | 2023-03-02 11:24 | PT.OPDS ---
Current Diagnoses Pain in right knee (11/24/22) Visit Care Team Role Provider Type Doctor MD Bon Primary Care Provider Non-Staff Referring Provider Specialty: Medical Address: Phone: Fax: Email: Ele Jones MD Attending Provider Non-Staff Specialty: Urology Address: [address] [place] [address], [id number] Email: Visit Number Visit Number 8 Discharge Summary PT-OP-B Current Condition Start: 09/23/22 15:19 Freq: Status: Active Protocol: Document 09/23/22 09:45 DCW (Rec: 09/23/22 15:42 DCW [id number]) Current Condition History of Current Condition Onset Date Four month history Current Complaints Right knee pain following slip /twisting on ice History of Current Condition Pt is a 62 year old male presenting with a four month history of right knee pain. Pt report he slipped on ice in May, and fell into a temporary fence, resulting in a twisting motion of his right knee. Pt reports he initially didn't feel anything, and then within 24 hours, he had relatively minor pain and swelling. Admits that he didn' t think much of it, until he actually tried to do anything with it, and then any activity he performed felt like it was getting reinjured. Admits to good days and bad days, with no real understanding of what causes which. Notes it has been bothering him enough that he went to get seen by urgent care, and was told he had possible meniscus involvement, and may want a referral to an Ortho. Pt does not feel that even with an MRI showing a meniscus tear that he would opt for surgery, so he would like to try to improve with PT. Pain when he has his large dog pulls or twists with his knee, ascending/descending stairs, or moving his leg while driving. Has tried riding his stationary bike, which seems to help some. Treatment Goals Patient/Caregiver Goals Improve mobility and pain during activities PT-OP-C Subjective Start: 09/23/22 15:19 Freq: Status: Active Protocol: Document 11/24/22 10:15 DCW (Rec: 11/24/22 10:56 DCW [id number]) OP-PT Subjective Patient Comments Patient Comments I worked it pretty hard this weekend. PT-OP-F Manual Assessment Start: 09/23/22 15:19 Freq: Status: Active Protocol: Document 09/23/22 09:45 DCW (Rec: 09/23/22 15:42 DCW [id number]) Manual Assessments Joint Mobility Assessment Joint Mobility Assessment Point-specific pain right on joint-line slightly anterior to MCL PT-OP-G Mobility & Gait Start: 09/23/22 15:19 Freq: Status: Active Protocol: Document 09/23/22 09:45 DCW (Rec: 09/23/22 15:42 DCW [id number]) OP Gait Assessment Comments Gait Comments During gait, pt performs a slight external rotation during R swing phase, which creates a slight gapping at his medial joint line. PT-OP-L Special Tests Start: 09/23/22 15:19 Freq: Status: Active Protocol: Document 09/23/22 09:45 DCW (Rec: 09/23/22 15:42 DCW [id number]) Special Tests Knee Special Tests Varus- 25 Degrees Test Results Negative Valgus- 25 Degrees Test Results Negative Posterior Draw Test Results Negative Patellar Grind Test Test Results Negative Patella Tap Test Results Negative Nargis Test Test Results Positive Right Apprehension Test Test Results Positive Right Apley's Compression Test Results Positive Right Anterior Draw Test Results Negative PT-OP-M Strength Start: 09/23/22 15:19 Freq: Status: Active Protocol: Document 09/23/22 09:45 DCW (Rec: 09/23/22 15:42 DCW [id number]) Knee Strength Knee Manual Muscle Testing Right Flexion (S2) 5 Normal Extension (L3) 4 Good Comments Pain with resisted right extension Left Flexion (S2) 5 Normal Extension (L3) 5 Normal PT-OP-T Assessment and Plan Start: 09/23/22 15:19 Freq: Status: Active Protocol: Document 03/02/23 11:23 DCW (Rec: 03/02/23 11:23 DCW [id number]) Physical Therapy Assessment Goals Two Impairment Pt has pain when ascending/ descending stairs Prison Goal (LTG) Pt to ascend/descend 12 steps, [id number], without pain, in order to improve ability to perform daily activities. 11/03/22: MET GOAL: ascend/ descend 28 MAP bld stairs reciprocal stepping pain-free and states doing well at home pain-free. LTG Duration 12/22/22 GOAL MET One Impairment Pt does not have an appropriate home exercise program Short Term Goal (STG) Pt to be independent and compliant with an appropriate HEP 10/21/22: step ups, band walk f /b/l, mini squat, stretching in standing, st lunge. 11/17/22: added Supine VMO SLR, single leg bridge, step downs for strength progression. STG Duration 10/24/22 progression 11/17/22 Assessment Summary Assessment Pt phoned clinic requesting discharge. Pt will be discharged from skilled therapy at this time. Physical Therapy Plan Frequency and Duration Frequency of Treatment 2x/Week Plan of Care Start Date 09/23/22 Plan of Care End Date 12/22/22 Discharge Physical Therapy Discharge Reasons Patient Request Next Visit Focus/Plan Next Note Type Discharge Summary
== END 2023-03-04 15:43 | disposition home or self-care (01) ==
LOC: PHYS 10:15
PROVIDERS: Visit Provider Urology
DX: M25.561 Pain in right knee (principal)
CPT/HCPCS: 97110; 97112; 97140; 97161; 97535

== ENCOUNTER → 2024-06-26 11:25 | Outpatient (CLI) | payer BC, SELFPAY ==
[2024-06-26 12:06] LABS: Add Manual Diff / Slide Review NO; Basophils Absolute Auto 0 /uL (0-100); Basophils Percent Auto 0.7 % (0-2); Eosinophils Absolute Auto 100 /uL (0-450); Eosinophils Percent Auto 1.1 % (2-4); Hematocrit 44.8 % (41-53); Hemoglobin 15.1 g/dL (13.5-17.5); Lymphocytes Absolute Auto 1800 /uL (1100-4500); Lymphocytes Percent Auto 26.9 % (25-40); Mean Corpuscular HGB Conc 33.6 % (30-36); Mean Corpuscular Hemoglobin 30.1 PG (26-34); Mean Corpuscular Volume 89.5 fL (80-100); Monocytes Absolute Auto 700 /uL (0-900); Monocytes Percent Auto 9.6 % (3-14); Neutrophils Absolute Auto 4200 /uL (1500-7000); Neutrophils Percent Auto 61.7 % (50-75); Platelet Count 203 X10^3/uL (150-400); Red Blood Cell Count 5.01 X10^6/uL (4.5-5.9); Red Cell Distribution Width 13.2 % (11.6-14.8); White Blood Cell Count 6.9 X10^3/uL (4.5-11.0)
[2024-06-26 12:16] LABS: Hemoglobin A1C% w Est Avg Glu 5.6 % (4.0-6.0)
[2024-06-26 12:21] LABS: Alanine Aminotransferase 49 IU/L (<50); Albumin 4.5 g/dL (3.5-5.0); Albumin Globulin Ratio 1.8 (1.0-2.8); Alkaline Phosphatase 49 U/L (38-126); Aspartate Aminotransferase 33 IU/L (17-59); BUN Creatinine Ratio 20.5 (6-22); Bilirubin Total 0.8 mg/dL (0.2-1.3); Blood Urea Nitrogen 17 mg/dL (9-20); Calcium 9.5 mg/dL (8.4-10.2); Carbon Dioxide 29 mmol/L (22-32); Chloride 101 mmol/L (98-107); Cholesterol 135 mg/dL (140-199); Estimated Glomerular Filt Rate > 60 mL/min (>60); Globulin 2.5 g/dL (1.7-4.1); Glucose 96 mg/dL (80-110); HDL Cholesterol 47 mg/dL (40-60); HEMOLYSIS < 15 (0-50); LDL Cholesterol Calculated 72 mg/dL (<100); Potassium 4.6 mmol/L (3.4-5.1); Sodium 138 mmol/L (137-145); Triglycerides 78 mg/dL (35-150)
[2024-06-26 12:52] LABS: Prostate Specific Antigen Scrn 3.54 ng/mL (0.1-4.0)
== END ==
PROVIDERS: PCP Family Medicine; Referring Provider Family Medicine; Visit Provider Family Medicine
DX: Z12.5 Encounter for screening for malignant neoplasm of prostate (principal); Z13.9 Encounter for screening, unspecified; Z13.220 Encounter for screening for lipoid disorders; Z13.1 Encounter for screening for diabetes mellitus
CPT/HCPCS: 36415; 80053; 80061; 83036; 85025; G0103

== ENCOUNTER 2024-07-20 07:17 | Day surgery (SDC) | payer BC, SELFPAY ==
--- NOTE | 2024-07-20 | PATH_ITS ---
[facility] Accession Number: [id number] No. of containers..01 Tissue . 01 Material submitted: . colon - CECAL POLYPS . 01 Diagnosis: CECAL POLYPS: Tubular adenoma x1. Colonic mucosa with prominent benign lymphoid aggregate x1. AMANDEEP 07/24/2024 1038 Local . 01 Electronically signed: . Andrew Sofia MD, PhD, Pathologist NPI- [id number] . 01 Gross description: . Received in formalin with two patient identifiers and cecal polyps, are two sanchez soft tissue fragments 0.3 to 0.5 cm in greatest dimesion. Submitted in cassette A1. ([id number]) /AMANDEEP 07/21/2024 1920 Local . 01 Pathologist provided ICD-10: D12.0 . 01 CPT . 625966 Specimen Comment: A courtesy copy of this report has been sent to [phone] Performed at: [address] [id number] MD Will Hurst MD Phone: [phone]
[2024-07-20] MEDS: SODIUM CHLORIDE 0.9% 1,000 ML 84 ML IV (07:26)
[2024-07-20 07:40] VITALS: BP 132/81; PULSE 77; RESP 12; TEMP 36.5; O2SAT 100
--- NOTE | 2024-07-20 08:15 | PM.HP.IH.1 ---
History of Present Illness History of Present Illness Date Patient Seen: 07/20/24 Time Patient Seen: 08:15 Chief complaint: SDC Narrative: Brian is a 63-year-old man here for a colonoscopy. He has never had a colonoscopy or any other form of colon cancer screening before. No family history of colon cancer. 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 [employer] Smoking Status: Never smoker alcohol intake: current Meds Home Medications and Allergies Allergies Allergy/AdvReac Type Severity Reaction Status Date / Time No Known Drug Allergies Allergy Verified 07/20/24 07:34 Exam Vital Signs (past 8 hours): - 07/20/24 07:40 Temperature 97.7 F Pulse Rate 77 Respiratory Rate 12 Blood Pressure 132/81 Pulse Oximetry 100 Oxygen Delivery Method Room Air Oxygen Delivery Method Room Air Const General: healthy appearing Resp Effort & Inspection: normal respiratory effort Assessment & Plan Assessment and plan (1) Colon cancer screening: Status: Acute Plan We reviewed the risks and benefits of colonoscopy and he would like to proceed. Time-Based Coding :: [TOTAL MINUTES] spent with patient and on the chart (including review of chart, obtaining history, exam, reviewing outside data, placing orders, documenting exam and treatment plan, and counseling patient) on [DATE]. PROFEE Brown Sourer Document charge(s): No
--- NOTE | 2024-07-20 08:56 | PM.OP.COLON ---
Operative Date/Time/Diagnoses Date of procedure: 07/20/24 Time of procedure: 08:56 Pre-op diagnosis: Colon cancer screening Post-op diagnosis: same Procedure & Clinicians Study performed: Colonoscopy Same procedure as scheduled: Yes Surgeon: Skuhi Bah Procedure Notes Procedure in detail: Surgeon: Sukhi Bah MD Anesthesia: Soraida Kong MD Procedure: The patient was brought to the endoscopy suite, placed in left lateral decubitus position. The patient was connected to monitoring devices. A time-out was performed. No sedation was administered per patient request. A digital rectal exam was performed and was normal. The scope was then inserted and advanced to the cecum where the appendiceal orifice was identified and photographed. The scope was then slowly withdrawn over greater than 6 minutes. The mucosa was thoroughly inspected. There were 2 small polyps in the cecum removed with a Jumbo forceps and sent together. The scope was retroflexed in the rectum. [] The scope was straightened and removed. The patient was brought to recovery. Scope withdrawal time: 9 minutes Sedation time: 0 minutes EBL: 2 mL Findings: 2 diminutive cecal polyps Post-procedure Disposition: PACU
[2024-07-20 09:01] VITALS: BP 144/90; PULSE 74; RESP 16; TEMP 36.7; O2SAT 98
== END 2024-07-20 09:05 | disposition home or self-care (01) ==
PROVIDERS: PCP Family Medicine; Referring Provider Surgery; Visit Provider Surgery
PROC: 0DJD8ZZ Inspection of Lower Intestinal Tract, Via Natural or Artificial Opening Endoscopic (ICD-10-PCS; CPT 45378; principal; 2024-07-20 08:15)
DX: Z12.11 Encounter for screening for malignant neoplasm of colon (principal); D12.0 Benign neoplasm of cecum; I48.91 Unspecified atrial fibrillation; Z79.01 Long term (current) use of anticoagulants
CPT/HCPCS: 45380

== ENCOUNTER → 2025-01-04 14:39 | Outpatient (CLI) | payer BC, SELFPAY ==
--- NOTE | 2025-01-04 14:41 | DI.US.S_ITS ---
PROCEDURE: US SCROTUM INDICATIONS: RIGHT TESTICLE PALPABLE LUMP. BILATERAL GROIN SWELLING/PAIN. TECHNIQUE: Real-time scanning was performed of the scrotum and testicles, with image documentation. Color and pulse Doppler interrogation was performed of both testicles. COMPARISON: None. FINDINGS: Right: Testicle is normal in size at 5.2 x 3.6 x 2.1 cm, and homogenous in echotexture. Tiny simple appearing cyst in right testes is seen measures 2 x 2 x 1 mm in size. Epididymis is normal in overall size . simple cyst is seen in right epididymal head and measures 3 x 2 x 1 mm in size. No hydrocele . Right-sided varicoceles are noted measures up to 3.9 mm in diameter. Overlying scrotal skin is normal in thickness. Left: Testicle is normal in size at 4.7 x 2.8 x 1.7 cm, and homogeneous in echotexture. Tiny 2 x 2 x 2 mm simple cyst is seen in left testicular parenchyma. Epididymis is normal in overall size. Simple cyst is also seen in left epididymis measures 2 x 1 x 1 mm in size. No hydrocele . Mild left-sided varicoceles are seen measures up to 3.9 mm in diameter. Overlying scrotal skin is normal in thickness. Doppler: Color and pulse Doppler demonstrate normal and symmetric arterial flow in both testicles. IMPRESSION: 1. Tiny cysts seen in bilateral testes. No solid appearing testicular lesion. No evidence of testicular torsion. 2. Bilateral epididymal cysts as above. No hydroceles. Bilateral varicoceles measures up to 3.9 mm in diameter. 3. No inguinal hernia. No inguinal lymphadenopathy. Dictated by: Asael Garcia M.D. on 01/05/2025 at 11:34 Approved by: Asael Garcia M.D. on 01/05/2025 at 11:39
== END ==
LOC: US 14:40
PROVIDERS: PCP Family Medicine; Referring Provider Family Medicine; Visit Provider Family Medicine
DX: N50.811 Right testicular pain (principal); N50.3 Cyst of epididymis
CPT/HCPCS: 76870

== ENCOUNTER → 2025-01-05 08:40 | Outpatient (CLI) | payer BC, SELFPAY ==
[2025-01-05 09:55] LABS: Add Manual Diff / Slide Review NO; Hematocrit 43.7 % (41-53); Hemoglobin 15.3 g/dL (13.5-17.5); Lymphocytes Absolute Auto 1700 /uL (1100-4500); Mean Corpuscular HGB Conc 35.0 % (30-36); Mean Corpuscular Hemoglobin 31.3 PG (26-34); Mean Corpuscular Volume 89.4 fL (80-100); Platelet Count 202 X10^3/uL (150-400)
[2025-01-05 10:04] LABS: Alanine Aminotransferase 29 IU/L (<50); Albumin 4.7 g/dL (3.5-5.0); Albumin Globulin Ratio 1.7 (1.0-2.8); Alkaline Phosphatase 49 U/L (38-126); Blood Urea Nitrogen 15 mg/dL (9-20); Calcium 9.2 mg/dL (8.4-10.2); Carbon Dioxide 28 mmol/L (22-32); Chloride 102 mmol/L (98-107); Cholesterol 122 mg/dL (140-199); Estimated Glomerular Filt Rate > 60 mL/min (>60); Globulin 2.8 g/dL (1.7-4.1); Glucose 94 mg/dL (70-99); HDL Cholesterol 44 mg/dL (40-60); HEMOLYSIS < 15 (0-50); Potassium 4.6 mmol/L (3.4-5.1); Sodium 139 mmol/L (137-145); Total Protein 7.5 g/dL (6.3-8.2); Triglycerides 66 mg/dL (35-150)
[2025-01-05 10:21] LABS: Vitamin D 25 Hydroxy (D3) 54.4 ng/mL (30.0-100.0)
[2025-01-05 10:58] LABS: HIV 1 & 2 Ab/Ag 4th Gen Combo NEGATIVE (NEGATIVE); Hep C Virus Ab w/Reflex Quant NEGATIVE s/c (NEGATIVE)
== END ==
PROVIDERS: PCP Family Medicine; Referring Provider Family Medicine; Visit Provider Family Medicine
DX: R59.9 Enlarged lymph nodes, unspecified (principal); R59.0 Localized enlarged lymph nodes; Z11.4 Encounter for screening for human immunodeficiency virus [HIV]; R53.83 Other fatigue; Z13.21 Encounter for screening for nutritional disorder; Z13.9 Encounter for screening, unspecified; Z11.59 Encounter for screening for other viral diseases; Z12.5 Encounter for screening for malignant neoplasm of prostate
CPT/HCPCS: 36415; 80053; 80061; 82306; 85025; 85651; 86140; 86592; 86803; 87389; G0103

== ENCOUNTER → 2025-01-12 10:50 | Outpatient (CLI) | payer BC, SELFPAY ==
[2025-01-12 15:23] LABS: Urine Chlamydia NOT DETECTED; Urine N gonorrhoeae NOT DETECTED
== END ==
PROVIDERS: PCP Family Medicine; Referring Provider Family Medicine; Visit Provider Family Medicine
DX: R59.0 Localized enlarged lymph nodes (principal)
CPT/HCPCS: 36415; 87491; 87591

== ENCOUNTER → 2025-03-02 15:22 | Outpatient (CLI) | payer BC, SELFPAY | PROVIDERS: PCP Family Medicine; Referring Provider Family Medicine; Visit Provider Family Medicine | DX: Z12.5 Encounter for screening for malignant neoplasm of prostate (principal); R97.20 Elevated prostate specific antigen [PSA] | CPT/HCPCS: 36415; G0103 ==

== ENCOUNTER → 2025-05-22 11:36 | Outpatient (CLI) | payer BC, SELFPAY ==
[2025-05-22 13:22] LABS: Prostate Specific Antigen 5.34 ng/mL (0.10-4.00)
== END ==
PROVIDERS: PCP Family Medicine; Referring Provider Urology; Visit Provider Urology
DX: R97.20 Elevated prostate specific antigen [PSA] (principal)
CPT/HCPCS: 36415; 84153

== ENCOUNTER → 2025-06-07 15:23 | Outpatient (CLI) | payer BC, SELFPAY ==
--- NOTE | 2025-06-07 15:27 | DI.MRI.S_ITS ---
PROCEDURE: MR PELVIC PROSTATE PROTOCOL INDICATIONS: 64 y/o M w/ elevated PSA, please eval TECHNIQUE: Coronal HASTE, axial T1 FSE with fat saturation, 3-plane nonbreath-hold T2 FSE. After the administration of contrast, dynamic axial, delayed axial and coronal VIBE or 2-D FLASH with fat saturation through the pelvis. Diffusion weighted imaging and ADC was performed. COMPARISON: None. FINDINGS: Image quality: Diffusion weighted and dynamic contrast enhanced images are diagnostic. Prostate: Gland size is 6.2 x 4.9 x 5.6 cm; ellipsoid gland volume is 88.5 mL. PSA density is estimated to be 0.060 Transitional zone heterogenous nodules are present, either well encapsulated or mostly encapsulated, compatible with PI-RADS 1 or 2 likely BPH nodules. Median lobe hypertrophy impinges at the bladder neck Mildly T2 hypointense heterogenous striated appearance of the peripheral zone is commonly seen with current or prior prostatitis, PI-RADS 2. These findings can obscure small cancers. Genitourinary system: Distended urinary bladder. Bowel and peritoneum: Moderate colonic fecal loading partially seen. No bowel obstruction Nodes and vessels: No aneurysmal artery identified. No enlarged lymph nodes by size criteria. Soft tissues: No significant pelvic wall abnormality Bones: No aggressive appearing osseous finding. IMPRESSION: No suspicious MRI findings for clinically significant prostate adenocarcinoma. Consider continued PSA and possible MRI surveillance. Predominant findings are BPH and prostatitis sequelae. No pelvic lymphadenopathy by size criteria. No aggressive osseous abnormality. Dictated by: Jarett Felipe M.D. on 06/08/2025 at 6:19 Approved by: Jarett Felipe M.D. on 06/08/2025 at 6:25
== END ==
LOC: MRI 15:26
PROVIDERS: PCP Family Medicine; Referring Provider Urology; Visit Provider Urology
DX: N40.0 Benign prostatic hyperplasia without lower urinary tract symptoms (principal); R97.20 Elevated prostate specific antigen [PSA]
CPT/HCPCS: 72197; A9579